=== PATIENT | male | born 1995 | race Caucasian/White ===

== ENCOUNTER 2018-01-12 18:20 | Emergency (ER) | payer OTHER ==
[2018-01-12] MEDS ORDERED: ONDANSETRON 4 MG TAB.RAPDIS PO ONE (18:51)
--- NOTE | 2018-01-12 18:52 | ER Document Report ---
ED Medical Screen (RME) - General Chief Complaint: Vomiting/Diarrhea Stated Complaint: VOMITING,DIARRHEA Time Seen by Provider: 01/12/18 18:46 Notes: 22-year-old male patient onset about 3 PM yesterday afternoon of nausea vomiting diarrhea. He states he threw up about 3 times yesterday and 3 times today. He is having frequent diarrhea which is a light brown watery diarrhea. There is no fevers. I have greeted and performed a rapid initial assessment of this patient. A comprehensive ED assessment and evaluation of the patient, analysis of test results and completion of the medical decision making process will be conducted by additional ED providers. - Related Data Allergies/Adverse Reactions: No Known Allergies Allergy (Unverified 01/12/18 18:22) Past Medical History - Social History Chew tobacco use (# tins/day): No Frequency of alcohol use: None Drug Abuse: None Renal/ Medical History: Denies: Hx Peritoneal Dialysis Physical Exam - Vital signs Vitals: Temp Pulse Resp BP Pulse Ox 98.4 F 101 H 17 124/75 97 01/12/18 18:26 01/12/18 18:26 01/12/18 18:26 01/12/18 18:26 01/12/18 18:26 Course - Vital Signs Vital signs: Temp Pulse Resp BP Pulse Ox 98.4 F 101 H 17 124/75 97 01/12/18 18:26 01/12/18 18:26 01/12/18 18:26 01/12/18 18:26 01/12/18 18:26
--- NOTE | 2018-01-12 19:41 | ER Document Report ---
HPI - HPI Pain Level: 3 Notes: Patient is a 22-year-old male with no significant past medical history who presents to the ED complaining of nausea, vomiting, diarrhea 1 day. Patient states that he ate salad with some dressing on it and believes that he may have gotten food poisoning. Patient states that he vomited 3 times yesterday and 3 times today. He is still able to tolerate some fluids. Patient states that he has intermittent abdominal cramping which leads into either vomiting or diarrhea and then subsides. He denies any drug allergies. No other concerns or complaints at this time. Denies any smoking or IV drug use. Denies any headache, fever, neck pain, URI, sore throat, chest pain, palpitations, syncope , cough, shortness of breath, wheeze, dyspnea, urinary retention, dysuria, hematuria, back pain, loss of control of bowel or bladder, numbness/tingling, muscle paralysis/weakness, or rash. - ROS Systems Reviewed and Negative: Yes All other systems reviewed and negative Past Medical History - Social History Smoking Status: Never Smoker Chew tobacco use (# tins/day): No Frequency of alcohol use: None Drug Abuse: None Family History: Reviewed & Not Pertinent Patient has suicidal ideation: No Patient has homicidal ideation: No Renal/ Medical History: Denies: Hx Peritoneal Dialysis Vertical Provider Document - CONSTITUTIONAL Agree With Documented VS: Yes Notes: PHYSICAL EXAMINATION: GENERAL: Well-appearing, well-nourished and in no acute distress. A&Ox4. Moves comfortably. HEAD: Atraumatic, normocephalic. EYES: Pupils equal round and reactive to light, extraocular movements intact, sclera anicteric, conjunctiva are normal. ENT: Nares patent and without discharge. oropharynx clear without exudates. No tonsilar hypertrophy or erythema. Moist mucous membranes. NECK: Normal range of motion, supple without lymphadenopathy LUNGS: Breath sounds clear to auscultation bilaterally and equal. No wheezes rales or rhonchi. HEART: Regular rate and rhythm without murmurs, rubs, gallops. ABDOMEN: Soft, nontender, nondistended abdomen. No guarding, no rebound. No masses appreciated. Normal bowel sounds present. No CVA tenderness bilaterally. no tenderness at [place]. Baker neg. Extremities: No cyanosis, clubbing, or edema b/l. Peripheral pulses 2+. Capillary refill less than 3 seconds. NEUROLOGICAL: Normal speech, normal gait. PSYCH: Normal mood, normal affect. SKIN: Warm, Dry, normal turgor, no rashes or lesions noted. Course - Re-evaluation Re-evalutation: 01/12/18 19:39 Patient is an afebrile, well-hydrated, 22-year-old male who presents to the ED with nausea, vomiting, diarrhea, suspect viral at this time. Vitals are acceptable. PE is otherwise unremarkable. Patient is currently tolerating p.o. without difficulties. He received Zofran at triage. He has not had any episodes of emesis throughout his stay. He has no significant tachycardia, tachypnea, or hypoxia. No labs or imaging warranted at this time based on H&P. Patient is nontoxic-appearing. Patient's abdomen is soft and nontender. Low suspicion/risk for acute appendicitis, bowel obstruction, acute cholecystitis, perforated diverticulitis, incarcerated hernia, pancreatitis, perforated ulcer, peritonitis, sepsis, testicular torsion, or other systemic emergent condition at this time. Patient is aware that his condition can change from initial presentation and he needs to monitor symptoms closely and seek medical attention if any acute changes. I will send him home with a prescription for Zofran and Imodium. Conservative measures otherwise for symptoms. Recheck with PCM in 2-3 days. Consider consult with a artillery officer. Return to the ED with any worsening/concerning symptoms otherwise as reviewed in discharge. Patient is in agreement. - Vital Signs Vital signs: Temp Pulse Resp BP Pulse Ox 98.4 F 101 H 17 124/75 97 01/12/18 18:26 01/12/18 18:26 01/12/18 18:26 01/12/18 18:26 01/12/18 18:26 Discharge - Discharge Clinical Impression: Nausea vomiting and diarrhea Condition: Stable Disposition: HOME, SELF-CARE Instructions: Diarrhea, Nonspecific ([facility]), Antinausea Medication ([facility]), Prescribed Antidiarrhea Medications ([facility]), Vomiting ([facility]) Additional Instructions: Maintain adequate fluid and food intake [place] diet ([employer] Bananas, rice, apples, toast, etc Zofran as needed tylenol if needed Monitor for any worsening symptoms Make sure you are staying hydrated enough to urinate and have normal BM's Recheck with your PCM in 2-3 days Consider consult with Gastroenterology for ongoing/worsening symptoms Return to the ED with any worsening symptoms and/or development of fever, headache, chest pain, palpitations, syncope, shortness of breath, trouble breathing, abdominal pain, n/v/d, blood in stool/urine, weakness, or other worsening symptoms that are concerning to you. Prescriptions: Loperamide HCl [Imodium 2 mg Capsule] 2 mg PO PRN PRN #21 cap PRN Reason: Ondansetron [Zofran Odt 4 mg Tablet] 1 - 2 tab PO Q4H PRN #15 tab.rapdis PRN Reason: For Nausea/Vomiting Referrals: [facility] [Other] - 01/14/18
[2018-01-12 20:55] VITALS: BP 121/72
== END 2018-01-12 20:00 | disposition home or self-care (01) ==
LOC: ER 18:20
DX: R11.2 Nausea with vomiting, unspecified (principal); R19.7 Diarrhea, unspecified; R10.9 Unspecified abdominal pain
CPT/HCPCS: 99283; S0119

== ENCOUNTER 2018-05-04 14:21 | Emergency (ER) | payer OTHER ==
[2018-05-04 14:46] VITALS: BP 139/83
--- NOTE | 2018-05-04 15:22 | ER Document Report ---
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 History of severe poison adali. Associated Symptoms: None Exacerbated by: Denies Relieved by: Denies Similar symptoms previously: Yes Recently seen / treated by doctor: No - ROS ROS below otherwise negative: Yes Systems Reviewed and Negative: Yes All other systems reviewed and negative Past Medical History - General Information source: Patient - Social History Smoking Status: Never Smoker Frequency of alcohol use: None Drug Abuse: None Occupation: Active duty [email or web address] Lives with: Family Family History: Reviewed & Not Pertinent - Medical History Medical History: Negative Renal/ Medical History: Denies: Hx Peritoneal Dialysis Vertical Provider Document - CONSTITUTIONAL Agree With Documented VS: Yes Exam Limitations: No Limitations - INFECTION CONTROL TRAVEL OUTSIDE OF THE [place] IN LAST 30 DAYS: No - HEENT HEENT: negative: Conjuctival Injection - NECK Neck: Supple - MUSCULOSKELETAL/EXTREMETIES Musculoskeletal/Extremeties: MAEW - DERM Integumentary: Rash - Vesicular serous draining linear and grouped rash to the volar and dorsal right forearm, no lymphangitis Course - Vital Signs Vital signs: Temp Pulse Resp BP Pulse Ox 98.2 F 89 16 139/83 H 100 05/04/18 14:44 05/04/18 14:44 05/04/18 14:44 05/04/18 14:44 05/04/18 14:44 Discharge - Discharge Clinical Impression: Right forearm allergic contact dermatiti Condition: Good Disposition: HOME, SELF-CARE Instructions: Poison Adali ([facility]), Steroid Medication Additional Instructions: Prednisone until gone See your sick call tomorrow for recheck Keep covered while at work Air exposure to help dry out when home Prescriptions: Prednisone [Deltasone 10 mg Tablet] 10 mg PO ASDIR PRN #42 tablet PRN Reason:
== END 2018-05-04 15:28 | disposition home or self-care (01) ==
LOC: ER 14:21
DX: L25.9 Unspecified contact dermatitis, unspecified cause (principal)
CPT/HCPCS: 99283